=== PATIENT | female | born 1985 | race Caucasian/White ===

== ENCOUNTER 2018-02-15 22:59 | Inpatient (IN) | payer MEDICAID, OTHER ==
[~2018-02-15] VITALS: Ht 170.2 cm; Wt 79.0 kg
[2018-02-16] MEDS ORDERED: DEXAMETHASONE 4 MG/ML, 1ML IVPush ONE
[2018-02-16] MEDS ORDERED: KETOROLAC 30 MG/1 ML IVPush PRN (00:30)
[2018-02-16] MEDS ORDERED: BISACODYL 10 MG SUPP PR PRN (00:30)
[2018-02-16] MEDS ORDERED: POLYETHYLENE GLYCOL 17 GM PACKET PO PRN (00:30)
[2018-02-16] MEDS ORDERED: ACETAMINOPHEN 325 MG TABLET PO PRN (00:30)
[2018-02-16] MEDS ORDERED: ONDANSETRON 2MG/ML, 2ML IVPush PRN (00:30)
[2018-02-16] MEDS: PLEASE ENTER ALLERGIES MC SCH ×13 (00:30→12:08)
[2018-02-16 00:43] VITALS: BP 110/73
[2018-02-16 03:12] VITALS: BP 115/76
[2018-02-16 05:24] LABS: MEAN CORPUSCULAR HEMOGLOBIN 31.8 pg (27.0-34.8); MEAN CORPUSCULAR HGB CONC 33.9 g/dL (32.4-35.8); MEAN CORPUSCULAR VOLUME 93.8 fL (80-100); MEAN PLATELET VOLUME 9.2 fL (7.4-10.4); PLATELET COUNT 262 x10^3/uL (130-400); RED BLOOD COUNT 4.88 x10^6/uL (3.82-5.3); RED CELL DISTRIBUTION WIDTH 12.4 % (9.6-15.2)
[2018-02-16 05:30] LABS: CALCIUM 8.8 mg/dL (8.5-10.1); CHLORIDE 103 mmol/L (98-107)
[2018-02-16 05:36] LABS: ALANINE AMINOTRANSFERASE 25 U/L (12-78); ALBUMIN 3.3 g/dL (3.4-5.0); ALKALINE PHOSPHATASE 85 U/L (45-117); ANION GAP 6 mmol/L (5-15); BILIRUBIN,TOTAL 0.6 mg/dL (0.2-1.0); CREATININE 0.72 mg/dL (0.55-1.02); TOTAL PROTEIN 7.5 g/dL (6.4-8.2)
[2018-02-16 05:48] LABS: BASOPHILS % (AUTO) 0 % (0-1); EOSINOPHILS % (AUTO) 0 % (1-7); LYMPHOCYTES # (AUTO) 0.49 x10^3/uL (1-3.4); LYMPHOCYTES % (AUTO) 4 % (22-44); MD SCAN; MONOCYTES # (AUTO) 0.04 x10^3/uL (0.2-0.8); MONOCYTES % (AUTO) 0 % (2-9); NEUTROPHILS # (AUTO) 12.44 x10^3/uL (1.8-6.8); NEUTROPHILS % (AUTO) 96 % (42-75)
[2018-02-16 08:00] VITALS: BP 127/93
[2018-02-16] MEDS: SODIUM CHLORIDE FLUSH 10ML SYR IVF SCH ×2 (09:00→21:00)
[2018-02-16] MEDS: SENNA/DOCUSATE TABLET PO SCH (09:00)
[2018-02-16] MEDS: CEFTRIAXONE PMX 1GM/50ML 50 ML IV SCH (09:28)
[2018-02-16 12:40] VITALS: BP 102/58
[2018-02-16 18:55] VITALS: BP 108/67
[2018-02-17 02:39] VITALS: BP 98/62
[2018-02-17 05:10] LABS: ALBUMIN 2.9 g/dL (3.4-5.0); ANION GAP 5 mmol/L (5-15); BASOPHILS # (AUTO) 0.16 x10^3/uL (0-0.1); BASOPHILS % (AUTO) 1 % (0-1); CALCIUM 8.4 mg/dL (8.5-10.1); CHLORIDE 105 mmol/L (98-107); EOSINOPHILS # (AUTO) 0.03 x10^3/uL (0-0.4); EOSINOPHILS % (AUTO) 0 % (1-7); LYMPHOCYTES # (AUTO) 2.57 x10^3/uL (1-3.4); LYMPHOCYTES % (AUTO) 20 % (22-44); MD NO; MEAN CORPUSCULAR HGB CONC 33.8 g/dL (32.4-35.8); MEAN CORPUSCULAR VOLUME 94.7 fL (80-100); MEAN PLATELET VOLUME 9.1 fL (7.4-10.4); MONOCYTES # (AUTO) 0.78 x10^3/uL (0.2-0.8); MONOCYTES % (AUTO) 6 % (2-9); NEUTROPHILS # (AUTO) 9.53 x10^3/uL (1.8-6.8); NEUTROPHILS % (AUTO) 73 % (42-75); PLATELET COUNT 278 x10^3/uL (130-400); RED BLOOD COUNT 4.39 x10^6/uL (3.82-5.3); RED CELL DISTRIBUTION WIDTH 12.4 % (9.6-15.2)
[2018-02-17 05:14] LABS: ALANINE AMINOTRANSFERASE 20 U/L (12-78); ALKALINE PHOSPHATASE 76 U/L (45-117); BILIRUBIN,TOTAL 0.4 mg/dL (0.2-1.0); CREATININE 0.69 mg/dL (0.55-1.02); TOTAL PROTEIN 6.3 g/dL (6.4-8.2)
[2018-02-17] MEDS ORDERED: LACTOBACILLUS CHEW TABLET PO SCH (06:00)
[2018-02-17 08:02] VITALS: BP 99/63
[2018-02-17] MEDS ORDERED: CLINDAMYCIN 300 MG CAPSULE PO SCH (09:00)
[2018-02-17] MEDS ORDERED: ACID1TAB7 PO (09:18)
[2018-02-17] MEDS ORDERED: CLIN300C8 PO (09:18)
[2018-02-17] MEDS ORDERED: CEFD300C37 PO (09:18)
[2018-02-17] MEDS: CEFTRIAXONE PMX 1GM/50ML 50 ML IV SCH (09:20)
[2018-02-17] MEDS: SODIUM CHLORIDE FLUSH 10ML SYR IVF SCH (09:20)
[2018-02-17] MEDS: SENNA/DOCUSATE TABLET PO SCH (09:22)
[2018-02-17] MEDS ORDERED: DOXY100T PO (11:33)
[2018-02-17] MEDS ORDERED: PRED20TA PO (11:33)
== END 2018-02-17 12:16 | disposition home or self-care (01) | DRG 153 ==
LOC: 3NE 23:51
PROVIDERS: ADMIT Hospitalist; ATTEND Hospitalist
DX: J05.10 Acute epiglottitis without obstruction (principal); R13.10 Dysphagia, unspecified; E78.5 Hyperlipidemia, unspecified; F17.210 Nicotine dependence, cigarettes, uncomplicated
CPT/HCPCS: 36415; 80053; 80359; 85025; 99285; J0696; J1100; J1885; G0480; J7512

== ENCOUNTER 2018-04-21 00:53 | Emergency (ER) | payer MEDICAID ==
[~2018-04-21] VITALS: Ht 170.2 cm; Wt 82.5 kg
[~2018-04-21 00:53] MED LIST: ACID1TAB7 PO; CEFD300C37 PO; CLIN300C8 PO; DOXY100T PO; PRED20TA PO
[2018-04-21 00:55] VITALS: BP 116/77
== END 2018-04-21 01:23 | disposition left against medical advice (07) ==
LOC: ED 01:17
DX: Z53.21 Procedure and treatment not carried out due to patient leaving prior to being seen by health care provider (principal)

== ENCOUNTER 2019-03-09 04:58 | Emergency (ER) | payer MEDICAID ==
[~2019-03-09] VITALS: Ht 167.6 cm; Wt 82.1 kg
[2019-03-09 05:37] LABS: MICROSCOPIC NOT IND
[2019-03-09 05:39] LABS: CULTURE INDICATED? NO; HCG UR SG 1.028 (1.003-1.030)
[2019-03-09 06:03] LABS: WET PREP WBCS MODERATE (FEW)
[2019-03-09 06:29] LABS: CLUE CELLS PRESENT (NONE SEEN)
--- NOTE | 2019-03-09 06:35 | NUR ---
PT GONE TO US
--- NOTE | 2019-03-09 06:53 | NUR ---
PT BACK FROM US. REPORT TO [facility]
--- NOTE | 2019-03-09 06:55 | NUR ---
Recieved bedside report from LACY Taylor. All questions answered. NADN. Pt asleep on gurney and has even chest rise and fall. No needs expressed at this time. Bedrails up for safety measures.
[2019-03-09] MEDS ORDERED: AZITHROMYCIN 500 MG TABLET PO ONE (07:00)
[2019-03-09] MEDS ORDERED: CEFTRIAXONE 250 MG IM ONE (07:00)
[2019-03-09] MEDS ORDERED: CEFTRIAXONE 250 MG ONE (07:01)
[2019-03-09] MEDS ORDERED: AZITHROMYCIN 250 MG TABLET ONE (07:02)
--- NOTE | 2019-03-09 08:02 | NUR ---
Patient given discharge instructions. Pt opens eyes, looks at EDRN, but does not speak to ED RN. Pt provided d/c paperwork and prescription. Pt provided 5 minutes to get ready with all personal belongings for d/c. ED RN returned to pt room to walk with pt to discharge. Pt does not look at EDRN or respond to EDRN verbally. Security to ED to help escort pt for discharge. Patient ambulatory with steady gait. Pt left with d/c paperwork, prescriptions, and all personal belongings.
[2019-03-09 08:05] VITALS: BP 94/48
== END 2019-03-09 08:08 | disposition home or self-care (01) ==
LOC: ED 06:03
DX: N76.0 Acute vaginitis (principal)
CPT/HCPCS: 76830; 81003; 81025; 87210; 87491; 87591; 87808; 96372; 99284; J0696